=== PATIENT | female | born 1995 | race Caucasian/White ===

== ENCOUNTER 2018-01-03 19:51 | Emergency (ER) | payer OTHER ==
[~2018-01-03] VITALS: Ht 162.6 cm; Wt 70.3 kg
[2018-01-03 19:55] VITALS: BP_SYST 130
[2018-01-03] MEDS ORDERED: valACYclovir HCL 500 MG TABLET PO ONE (21:00)
[2018-01-03] MEDS ORDERED: metroNIDAZOLE 500 MG TABLET PO ONE (22:15)
[2018-01-03 22:22] VITALS: BP_SYST 128
== END 2018-01-03 22:17 | disposition home or self-care (01) ==
LOC: SED 19:51
DX: A59.01 Trichomonal vulvovaginitis (principal); R21 Rash and other nonspecific skin eruption; R03.0 Elevated blood-pressure reading, without diagnosis of hypertension
CPT/HCPCS: 81025; 87210-TC; 87529; 99284

== ENCOUNTER 2018-04-26 18:14 | Inpatient (IN) | payer OTHER ==
[~2018-04-26] VITALS: Ht 162.6 cm; Wt 72.6 kg
[2018-04-26 18:26] VITALS: BP_SYST 118
[2018-04-26] MEDS ORDERED: VANCOMYCIN HCL 1,000 MG in NS 250 ML IV ONE (19:00)
[2018-04-26] MEDS ORDERED: CEFAZOLIN 1 GM IVPB PREMIX 50 ML IV ONE (19:00)
[2018-04-26 19:31] LABS: BASOPHILS # (AUTO) 0.1 K/uL (0.0-0.2); BASOPHILS % (AUTO) 0.9 % (0.0-2.0); EOSINOPHILS # (AUTO) 0.5 K/uL (0.0-0.4); EOSINOPHILS % (AUTO) 4.9 % (0.0-4.0); HEMATOCRIT 43.2 % (36-48); HEMOGLOBIN 14.1 g/dL (12.0-16.0); LYMPHOCYTES # (AUTO) 3.6 K/uL (1.0-5.5); LYMPHOCYTES % (AUTO) 33.7 % (20.5-51.5); MEAN CORPUSCULAR HEMOGLOBIN 27 pg (27-31); MEAN CORPUSCULAR HGB CONC 33 % (32-36); MEAN CORPUSCULAR VOLUME 82 fL (79.0-98.0); MONOCYTES # (AUTO) 0.5 K/uL (0.0-1.0); MONOCYTES % (AUTO) 4.8 % (1.7-9.3); NEUTROPHILS # (AUTO) 5.9 K/uL (1.8-7.7); NEUTROPHILS % (AUTO) 55.7 % (40.0-70.0); PLATELET COUNT (AUTO) 291 K/uL (130-430); RED BLOOD CELL COUNT(AUTO) 5.26 MIL/uL (4.2-6.2); RED CELL DISTRIBUTION WIDTH 11.9 % (9.0-15.0); WHITE BLOOD COUNT (AUTO) 10.6 K/uL (4.8-10.8)
[2018-04-26 19:38] LABS: CALCIUM 9.3 mg/dL (8.4-11.0); CREATININE 0.77 mg/dL (0.55-1.30); POTASSIUM 3.8 mmol/L (3.5-5.1)
[2018-04-26 19:42] LABS: ALBUMIN 4.2 g/dL (3.4-4.8); TOTAL BILIRUBIN 0.2 mg/dL (0.0-1.0)
[2018-04-26] MEDS ORDERED: VANCOMYCIN HCL 1000 MG/VIAL IV ONE (20:11)
[2018-04-26] MEDS ORDERED: CEPH-568 PO (21:12)
[2018-04-26] MEDS ORDERED: SULF1TAB48 PO (21:13)
[2018-04-26] MEDS ORDERED: traMADol HCL HCL 50 MG TABLET (ULTRAM) PO SCH (21:30)
[2018-04-26 21:45] VITALS: BP_SYST 126
[2018-04-26] MEDS ORDERED: PIPERACILLIN/TAZOBACTAM 3.375 GM/VIAL (ZOSYN) IV ONE (22:21)
[2018-04-26] MEDS: PIPERACILLIN/TAZO 3.375/DEX-IS 50 ML IV SCH (23:38)
[2018-04-27 00:43] VITALS: BP_SYST 101
[2018-04-27] MEDS ORDERED: traMADol HCL HCL 50 MG TABLET (ULTRAM) PO PRN (02:15)
[2018-04-27] MEDS: PIPERACILLIN/TAZO 3.375/DEX-IS 50 ML IV SCH ×4 (06:21→23:44)
[2018-04-27 07:35] VITALS: BP_SYST 102
[2018-04-27] MEDS: VANCOMYCIN HCL 1,500 MG in NS 250 ML IV SCH ×2 (09:28→20:48)
[2018-04-27 11:48] VITALS: BP_SYST 114
[2018-04-27 16:52] VITALS: BP_SYST 122
[2018-04-27 20:40] VITALS: BP_SYST 116
[2018-04-27] MEDS: NYSTATIN 15 GM TOPICAL POWDER TP SCH (20:51)
[2018-04-28 00:07] VITALS: BP_SYST 100
[2018-04-28] MEDS: PIPERACILLIN/TAZO 3.375/DEX-IS 50 ML IV SCH ×3 (06:04→18:21)
[2018-04-28 08:00] VITALS: BP_SYST 110
[2018-04-28] MEDS: VANCOMYCIN HCL 1,500 MG in NS 250 ML IV SCH ×2 (08:48→20:46)
[2018-04-28] MEDS: NYSTATIN 15 GM TOPICAL POWDER TP SCH ×2 (08:49→20:46)
[2018-04-28 12:02] VITALS: BP_SYST 113
[2018-04-28 16:02] VITALS: BP_SYST 108
[2018-04-28 19:40] VITALS: BP_SYST 121
[2018-04-28 23:52] VITALS: BP_SYST 115
[2018-04-29] MEDS: PIPERACILLIN/TAZO 3.375/DEX-IS 50 ML IV SCH ×5 (02:18→23:44)
[2018-04-29 07:30] VITALS: BP_SYST 102
[2018-04-29] MEDS: VANCOMYCIN HCL 1,500 MG in NS 250 ML IV SCH (09:15)
[2018-04-29] MEDS: NYSTATIN 15 GM TOPICAL POWDER TP SCH ×2 (09:15→21:01)
[2018-04-29 12:00] VITALS: BP_SYST 112
[2018-04-29 16:00] VITALS: BP_SYST 117
[2018-04-29] MEDS: VANCOMYCIN HCL 1,000 MG in NS 250 ML IV SCH (16:31)
[2018-04-29 20:00] VITALS: BP_SYST 111
[2018-04-29 23:40] VITALS: BP_SYST 118
[2018-04-30] MEDS: VANCOMYCIN HCL 1,000 MG in NS 250 ML IV SCH ×2 (00:55→08:42)
[2018-04-30] MEDS: PIPERACILLIN/TAZO 3.375/DEX-IS 50 ML IV SCH ×2 (05:34→11:52)
[2018-04-30 08:00] VITALS: BP_SYST 102
[2018-04-30] MEDS: NYSTATIN 15 GM TOPICAL POWDER TP SCH (08:43)
[2018-04-30 12:10] VITALS: BP_SYST 103
[2018-04-30 16:02] VITALS: BP_SYST 108
[2018-04-30 16:25] VITALS: BP_SYST 131
== END 2018-04-30 14:22 | disposition home or self-care (01) | DRG 383 ==
LOC: SED 18:14 → SMU 21:22
PROVIDERS: ADMIT Family Medicine; ATTEND Family Medicine
DX: L03.116 Cellulitis of left lower limb (principal); S90.822A Blister (nonthermal), left foot, initial encounter; X58.XXXA Exposure to other specified factors, initial encounter; Y93.89 Activity, other specified; Y92.89 Other specified places as the place of occurrence of the external cause; Y99.8 Other external cause status; Z83.3 Family history of diabetes mellitus; Z79.2 Long term (current) use of antibiotics
CPT/HCPCS: 36415; 80053; 80202-TC; 81025; 83605; 85025; 87040-TC; 96365; 96367; 96368; 99285; J0690; J2543; J3370; J7050; J7060